=== PATIENT | male | born 2000 ===

== ENCOUNTER 2022-05-11 10:55 | Emergency (ER) | payer SELFPAY ==
[2022-05-11] MEDS ORDERED: ONDANSETRON 4 MG/2 ML INJ IV ONE (11:16)
[2022-05-11] MEDS ORDERED: TETANUS,DIPH,PERTUSS(ACELL) VACCINE 0.5 ML SYRINGE IM ONE (11:16)
[2022-05-11] MEDS ORDERED: MORPHINE 4 MG/1 ML INJ IV ONE (11:16)
[2022-05-11] MEDS ORDERED: SODIUM CHLORIDE IRRI 500 ML 500 ML IR ONE ×2 (11:18→12:26)
[2022-05-11] MEDS ORDERED: LIDOCAINE (1%) 10 MG/1 ML VIAL 20 ML MDV INFILTRATI ONE (11:24)
--- NOTE | 2022-05-11 12:53 | Emergency Department Report ---
- General Chief Complaint: Wound/Laceration Stated Complaint: 2FINGERS CUT/LAC Time Seen by Provider: 05/11/22 11:06 Source: patient Mode of arrival: Ambulatory Limitations: Language Barrier ([employer] used) - History of Present Illness Initial Comments: 21-year-old Portuguese-speaking male [id number] presents to the hospital complaining of multiple lacerations to the left hand. Patient is using an electric jeremías when he tripped and fell. The electric jeremías was falling towards his face and he used his left hand to block the tremor which caused multiple lacerations to his left hand. Patient's pain is rated 9/10 intensity, constant, worse with movement and palpation. Last tetanus unknown - Related Data Previous Rx's Medication Instructions Recorded Last Taken Type Bacitracin/Polymixin B [Polysporin] 1 applicatio TP BID #1 tube 05/11/22 Unknown Rx Ibuprofen [Motrin] 800 mg PO Q8HR PRN #20 tablet 05/11/22 Unknown Rx Allergies Allergy/AdvReac Type Severity Reaction Status Date / Time No Known Allergies Allergy Verified 05/11/22 11:00 ED Review of Systems ROS: Stated complaint: 2FINGERS CUT/LAC Other details as noted in HPI Comment: All other systems reviewed and negative ED Past Medical Hx - Medications Home Medications: Home Medications Medication Instructions Recorded Confirmed Last Taken Type Bacitracin/Polymixin B [Polysporin] 1 applicatio TP BID #1 tube 05/11/22 Unknown Rx Ibuprofen [Motrin] 800 mg PO Q8HR PRN #20 tablet 05/11/22 Unknown Rx ED Physical Exam - General Limitations: Language Barrier - Other Other exam information: General: No acute distress Head: Atraumatic Eyes: normal appearance ENT: Moist mucous membranes Neck: Normal appearance, no midline tenderness Chest: Clear to auscultation bilaterally CV: Regular rate and rhythm Abdomen: Soft, normal bowel sounds, nontender, nondistended, no rebound or guarding Back: Normal inspection Extremity: Left hand with multiple lacerations. Lacerations are all palmar surface of hand. patient has a distal laceration to the left index finger which is 5 cm in length and oozing blood, proximal index finger laceration 3 cm. Proximal left thumb laceration 2.5. Full range of motion of all fingers. No apparent tendon injury on examination Neuro: Alert O x 3, no facial asymmetry, speech clear, no gross motor sensory deficit Psych: Appropriate behavior Skin: No rash ED Course Vital Signs 05/11/22 10:57 Temperature 98.2 F Pulse Rate 82 Respiratory 20 Rate Blood Pressure 134/84 [Right] O2 Sat by Pulse 98 Oximetry - Laceration /Wound Repair Left Hand Wound Location: upper extremity Wound Length (cm): 10 (10.5) Wound's Depth, Shape: linear Wound Explored: clean Irrigated w/ Saline (ccs): 500 Anesthesia: 1% Lidocaine Volume Anesthetic (ccs): 10 Wound Repaired With: sutures Suture Size/Type: 5:0, nylon Number of Sutures: 30 Layer Closure?: No Sterile Dressing Applied?: Yes Progress: Patient has 3 separate lacerations of the left hand on the palmar surface Thumb: 2.5 cm in length and 7 sutures placed Distal index finger: 5 cm in length and 12 sutures placed Proximal index finger: 3 cm in length and 11 sutures placed ED Medical Decision Making - Medical Decision Making 21-year-old male presents to the hospital with multiple lacerations to left hand. Initially bleeding upon arrival. No arterial bleed noted. Hemostasis achieved with application of pressure and primary wound closure. Please refer to suture note. Patient received morphine, Zofran, and tetanus. Critical care attestation.: If time is entered above; I have spent that time in minutes in the direct care of this critically ill patient, excluding procedure time. ED Disposition Clinical Impression: Laceration of left hand Disposition: HOME / SELF CARE / HOMELESS Is pt being admited?: No Does the pt Need Aspirin: No Condition: Stable Instructions: Sutured Wound Care Additional Instructions: Take the medication as prescribed. Your stitches in your hand need to be removed in 10 to 14 days. You may return here or to your primary care doctor office or clinic provided. Return if symptoms worsen as indicated by your discharge instructions [place] el medicamento segn lo prescrito. Los puntos de coker mano deben retirarse en 10 a 14 black. Puede regresar aqu o al consultorio de coker mdico de atencin primaria oa la clnica proporcionada. Regrese si los sntomas empeoran segn lo indicado en las instrucciones de claudette Prescriptions: Ibuprofen [Motrin] 800 mg PO Q8HR PRN #20 tablet PRN Reason: Pain , Severe (7-10) Bacitracin/Polymixin B [Polysporin] 1 applicatio TP BID #1 tube Referrals: [facility] [Provider Group] - 05/25/22 (Have your stiches removed in 10-14 DAYS) Time of Disposition: 13:09 Print Language: UGANDAN
[2022-05-11 13:26] VITALS: BP 120/70
== END 2022-05-12 13:24 | disposition home or self-care (01) ==
LOC: ED 10:55
DX: S61.412A Laceration without foreign body of left hand, initial encounter (principal); W19.XXXA Unspecified fall, initial encounter; Y93.89 Activity, other specified; Y92.89 Other specified places as the place of occurrence of the external cause; Y99.8 Other external cause status
CPT/HCPCS: 12004; 90471; 90715; 96374; 96375; 99283; J2270; J2405

== ENCOUNTER 2022-05-22 10:54 | Emergency (ER) | payer SELFPAY ==
[2022-05-22 12:36] VITALS: BP 120/74
--- NOTE | 2022-05-22 16:19 | Emergency Department Report ---
Suture/Staple Removal - [facility] Chief Complaint: Laceration/Recheck/Suture Stated Complaint: SUTURE REMOVAL When Sutures or [place] Placed: 11-14 Days Ago Wound Location: left hand on young surface ED Review of Systems ROS: Stated complaint: SUTURE REMOVAL Other details as noted in HPI Constitutional: denies: chills, fever Eyes: denies: eye pain, eye discharge, vision change ENT: denies: ear pain, throat pain Respiratory: denies: cough, shortness of breath, wheezing Cardiovascular: denies: chest pain, palpitations Endocrine: no symptoms reported Gastrointestinal: denies: abdominal pain, nausea, diarrhea Genitourinary: denies: urgency, dysuria Musculoskeletal: denies: back pain, joint swelling, arthralgia Skin: denies: rash, lesions Neurological: denies: headache, weakness, paresthesias Psychiatric: denies: anxiety, depression Hematological/Lymphatic: denies: easy bleeding, easy bruising ED Past Medical Hx - Past Medical History Previous Medical History?: No - Social History Smoking Status: Never Smoker - Medications Home Medications: Home Medications Medication Instructions Recorded Confirmed Last Taken Type Bacitracin/Polymixin B [Polysporin] 1 applicatio TP BID #1 tube 05/11/22 Unknown Rx Ibuprofen [Motrin] 800 mg PO Q8HR PRN #20 tablet 05/11/22 Unknown Rx Suture Removal Exam - Exam General: Vital signs noted. No distress. Alert and acting appropriately. Wound: No Pathologic Erythema, No Tenderness, No Drainage, No Pus, No Wound Dehiscence Other Systems: All other systems reviewed and are unremarkable. ED Course Vital Signs 05/22/22 12:34 Pulse Rate 76 Respiratory 16 Rate Blood Pressure 120/74 O2 Sat by Pulse 96 Oximetry ED Recheck [facility] - Differential Diagnosis Wound Recheck, Cellultitis Recheck, Suture/Staple Removal - Medical Decision Making 22 y/o female present to ED for suture removal place on 05/11/2022.Patient has 30 sutures intact to the left hand on young surface.patient has no drainge or erythema noted from the site.Patient denies any pain or discomfort at present .Suture remove without any difficulty. Physical examination sutures are intact. Rechecked the patient is resting quietly , comfortable and feeling better. I discussed the results of diagnostic study, my clinical impression and the plan for further treatment with the patient. Patient agrees with plan and discharge at this present time. All question addressed. I have given the patient instruction regarding a diagnosis ,expectation ,follow-up and return precaution. I explained to the patient that emergent condition may arise and to return to the ED for new worsen and any new persisting condition. I have explained the importance of following up with the primary care physician or referral physician listed below has instructed. The patient verbalized understanding of discharge instruction. Critical care attestation.: If time is entered above; I have spent that time in minutes in the direct care of this critically ill patient, excluding procedure time. ED Disposition Clinical Impression: Visit for suture removal Disposition: HOME / SELF CARE / HOMELESS Is pt being admited?: No Does the pt Need Aspirin: No Condition: Stable Instructions: Wound Closure Removal, Care After Additional Instructions: Return to ED for any worsening symptom Referrals: [facility] [Provider Group] - 3-5 Days
== END 2022-05-22 17:20 | disposition home or self-care (01) ==
LOC: ED 10:54
DX: S61.412D Laceration without foreign body of left hand, subsequent encounter (principal); X58.XXXD Exposure to other specified factors, subsequent encounter
CPT/HCPCS: 99282